=== PATIENT | female | born 1990 | race Caucasian/White ===

== ENCOUNTER 2017-06-04 20:55 | Emergency (ER) ==
[2017-06-04 21:02] VITALS: BP 129/80; TEMP 97.8; BMI 25.5
--- NOTE | 2017-06-04 21:28 | ED.PDOC ---
General ED Provider: Dr. DAMON ROPER Chief Complaint: Abdominal Pain Stated Complaint: BEEN HURTING IN THE LEFT FLANK, has h/o kidney stones in the past. Nausea vomitings Time Seen by Physician: 21:26 Mode of Arrival: Walk-In Information Source: Patient Nursing and Triage Documentation Reviewed and Agree: Yes GI Complaint Exam - Abdominal Pain Complaint/Exam Onset: Gradual Symptoms Are: Still present Timing: Constant Initial Severity: Moderate Current Severity: Moderate Location of Pain: Discrete Radiates To: Reports: Flank Character: Reports: Dull, Aching Aggravating: Reports: Movement Alleviating: Reports: None Associated Signs and Symptoms: Denies: Diaphoresis, Fever, Cough, Chest pain, Dizziness, Back pain, Constipation, Blood in stool, Dysuria, Urinary frequency, Decreased urine output, Decreased appetite, Vaginal bleeding, Vaginal discharge , Nausea, Vomiting, Diarrhea, Sore throat, Decreased activity Related History: Reports: Similar episode AAA Risk Factors: Reports: None Cardiac Risk Factors: Reports: None Ectopic Risk Factors: Reports: None Ovarian Torsion Risk Factors: Reports: None Surgical Obstruction Risk Factors: Reports: None Related Surgical History: Reports: None Patient Rh Status: Unknown Abdominal Findings: Present: None Differential Diagnoses: Renal Colic, UTI Review of Systems - Review Of Systems Constitutional: Reports: Malaise, Weakness Eyes: Reports: No symptoms Ears, Nose, Mouth, Throat: Reports: No symptoms Respiratory: Reports: No symptoms Cardiac: Reports: No symptoms GI: Reports: Abdominal pain, Vomiting : Reports: No symptoms Musculoskeletal: Reports: No symptoms Skin: Reports: No symptoms Neurological: Reports: No symptoms Endocrine: Reports: No symptoms Hematologic/Lymphatic: Reports: No symptoms All Other Systems: Reviewed and Negative Past Medical History - Past Medical History Previously Healthy: Yes Endocrine: Reports: None Cardiovascular: Reports: None Respiratory: Reports: None Hematological: Reports: None, Anemia Gastrointestinal: Reports: None, Other (states many evaluations for abdominal pain as a child without specific diagnosis) Genitourinary: Reports: Kidney stones, Other (10/23/16-CT medullary sponge kidneys) Neuro/Psych: Reports: Anxiety, Depression, Bipolar Disorder Musculoskeletal: Reports: Unknown Cancer: Reports: None Last Menstrual Period: 05/03/17 SPOTTED Other Pertinent Past Medical History: LITHOTRIPSY, URETER STINTS - Surgical History General Surgical History: Reports: Other (LITHOTRIPSY, URETER STINTS) - Family History Family History: Reports: Unknown - Social History Smoking Status: Current every day smoker Hx Substance Use: No Alcohol Screening: Occasionally - Immunizations Tetanus Shot up to Date: Yes Physical Exam - Physical Exam Appearance: Ill-appearing Pain Distress: Moderate Eyes: DYLLAN, EOMI, Conjunctiva clear ENT: Ears normal, Nose normal, Oropharynx normal Respiratory: Airway patent, Breath sounds clear, Breath sounds equal, Respirations nonlabored Cardiovascular: RRR, Pulses normal, No rub, No murmur GI/: Soft, Tender Musculoskeletal: Normal strength, ROM intact, No edema, No calf tenderness Skin: Warm, Dry, Normal color Neurological: Sensation intact, Motor intact, Reflexes intact, Cranial nerves intact, Alert, Oriented Psychiatric: Affect appropriate, Mood appropriate Critical Care Note - Critical Care Note Total Time (mins): 0 Course - Course Orders, Labs, Meds: Lab Review 06/04/17 21:10 Urine Color Yellow Urine Clarity Clear Urine pH 6.5 Ur Specific [place] 1.010 Urine Protein Negative Urine Glucose (UA) Negative Urine Ketones Negative Urine Blood Negative Urine Nitrite Negative Urine Bilirubin Negative Urine Urobilinogen 0.2 Ur Leukocyte Esterase Negative Urine Test Positive Orders Category Date Time Status URINALYSIS C & S IF INDICATED Stat LAB 06/04/17 21:10 Completed URINE Stat LAB 06/04/17 21:[address] ABDOMEN/PELVIS WO CONTRAST Stat RADS 06/04/17 21:24 Ordered Vital Signs: Temp Pulse Resp BP Pulse Ox 06/04/17 20:56 97.8 F 95 H 20 129/80 97 Departure - Departure Time of Disposition: 21:59 Disposition: HOME SELF-CARE Discharge Problem: Abdominal pain Qualifiers: Weeks of gestation: less than 8 weeks Qualifier Code: (Z3A.01) Less than 8 weeks gestation of Instructions: (ED) Condition: Stable Pt referred to PMD for follow-up: Yes Additional Instructions: Increase Hydration soft diet vitamins need f/u with OBGYN Allergies/Adverse Reactions: Allergies clarithromycin [From Biaxin] Adverse Reaction (Verified 06/04/17 21:02) ketorolac tromethamine [From Toradol] Adverse Reaction (Verified 06/04/17 21:02) pseudoephedrine HCl [From Sudafed] Adverse Reaction (Verified 06/04/17 21:02) Sulfa (Sulfonamide Antibiotics) Adverse Reaction (Verified 06/04/17 21:02) tramadol HCl [From Ultram] Adverse Reaction (Verified 06/04/17 21:02) Home Medications: Ambulatory Orders Gabapentin [Neurontin] 800 mg PO TID 10/23/16 Hydrocodone Bit/Acetaminophen [[place] 5-325] 1 - 2 tab PO Q6HR PRN #12 tablet Ondansetron HCl [Zofran Tab] 4 mg PO QID PRN #12 tablet 10/23/16 Oxcarbazepine [Trileptal] 150 mg PO DAILY 10/23/16 Oxcarbazepine [Trileptal] 300 mg PO BEDTIME 10/23/16 Trazodone HCl 100 mg PO BEDTIME 10/23/16 Bupropion HCl [Wellbutrin Sr] 150 mg PO DAILY 06/04/17 Disposition Discussed With: Patient, Family
[2017-06-04 21:34] LABS: BILIRUBIN,URINE Negative (NEGATIVE); KETONES,URINE Negative (NEGATIVE); LEUKOCYTE ESTERASE ,URINE Negative (NEGATIVE); NITRITE,URINE Negative (NEGATIVE); PH,URINE 6.5 (5-9); PROTEIN,URINE Negative (NEGATIVE); URINE, BLOOD Negative (NEGATIVE)
[2017-06-04 21:36] LABS: ADD URINE MICROSCOPIC NO
[2017-06-04 21:37] LABS: URINE PREGNANCY INTERNAL QC INTERNAL QC VALID
[2017-06-04] MEDS ORDERED: PHENERGAN 25 MG/ML VIAL IM STA (21:59)
== END 2017-06-04 22:50 | disposition home or self-care (01) ==
LOC: ED 20:55
DX: R10.9 Unspecified abdominal pain (principal); R11.2 Nausea with vomiting, unspecified; Z3A.01 Less than 8 weeks gestation of pregnancy; F17.210 Nicotine dependence, cigarettes, uncomplicated; Z79.899 Other long term (current) drug therapy
CPT/HCPCS: 81001; 81025; 96372; 99282

== ENCOUNTER 2017-06-07 15:04 | Emergency (ER) ==
[2017-06-07 15:04] VITALS: BMI 25.5
[2017-06-07 15:07] VITALS: BP 115/79; TEMP 98.1
[2017-06-07 15:53] LABS: BASOPHILS % (AUTO) 0.5 % (0.0-3.0); EOSINOPHILS # (AUTO) 0.1 K/ul (0.0-0.7); HEMATOCRIT 42.5 % (37.0-47.0); HEMOGLOBIN 14.4 g/dl (12.0-16.0); IMMATURE GRANULOCYTE % (AUTO) 0.2 % (0.0-5.0); LYMPHOCYTES # (AUTO) 1.6 K/uL (0.60-3.4); LYMPHOCYTES % (AUTO) 26.9 (10.0-50.0); MEAN CORPUSCULAR HEMOGLOBIN 29.8 pg (27.0-31.0); MEAN CORPUSCULAR HGB CONC 33.9 (31.8-35.4); MONOCYTES # (AUTO) 0.5 K/uL (0.4-2.0); MONOCYTES % (AUTO) 7.9 (0-10); NEUTROPHILS # (AUTO) 3.7 K/ul (2.0-6.9); NEUTROPHILS % (AUTO) 63.5; PLATELET COUNT 305 10^3/uL (140-440); RED BLOOD COUNT 4.83 10^6/ul (4.20-5.40); WHITE BLOOD COUNT 5.84 K/ul (4.6-10.2)
--- NOTE | 2017-06-07 15:57 | ED.PDOC ---
General ED Provider: Dr. VICTOR MANUEL HOWARD Chief Complaint: Non-specific Complaint Stated Complaint: Spotting or urinatry track bleeding. 2nd ER visit; urine positive in ER 2 days ago Time Seen by Physician: 15:25 Mode of Arrival: Walk-In Information Source: Patient Exam Limitations: No limitations Nursing and Triage Documentation Reviewed and Agree: Yes Complaint Exam - UTI Female Complaint/Exam Patient Complains of: Reports: Blood in urine Onset/Duration: 3 days ago; back pain Symptoms Are: Resolved (Back pain better, now some spotting - not sure if from urine or if vaginal.) Timing: Intermittent Initial Severity: Mild Current Severity: Mild Location of Pain: Reports: Left, Flank (mild - mostly resolved) Associated Signs and Symptoms: Reports: Vaginal discharge (uncertain if vaginal spotting). Denies: Fever, Chills, Dyspareunia : 1 (+ urine 2 days ago) Review of Systems - Review Of Systems Constitutional: Reports: No symptoms GI: Reports: No symptoms. Denies: Abdomen distended, Abdominal pain, Nausea : Reports: No symptoms Musculoskeletal: Reports: Back pain (mild - essentially resolved) Neurological: Reports: No symptoms Endocrine: Reports: No symptoms All Other Systems: Reviewed and Negative Past Medical History - Past Medical History Previously Healthy: Yes Endocrine: Reports: None Cardiovascular: Reports: None Respiratory: Reports: None Hematological: Reports: None, Anemia Gastrointestinal: Reports: None, Other (states many evaluations for abdominal pain as a child without specific diagnosis) Genitourinary: Reports: Kidney stones, Other (10/23/16-CT medullary sponge kidneys) Neuro/Psych: Reports: Anxiety, Depression, Bipolar Disorder Musculoskeletal: Reports: Unknown Cancer: Reports: None Last Menstrual Period: 03 of May Other Pertinent Past Medical History: LITHOTRIPSY, URETER STINTS - Surgical History General Surgical History: Reports: Other (LITHOTRIPSY, URETER STINTS) - Family History Family History: Reports: Unknown - Social History Smoking Status: Current every day smoker Hx Substance Use: No Alcohol Screening: Occasionally - Immunizations Tetanus Shot up to Date: Yes Physical Exam - Physical Exam Appearance: Well-appearing ENT: Ears normal, Nose normal, Oropharynx normal Neck: Supple Respiratory: Airway patent, Breath sounds clear, Breath sounds equal, Respirations nonlabored Cardiovascular: RRR, Pulses normal GI/: Soft, Nontender, No masses, Bowel sounds normal Skin: Warm, Dry, Normal color Neurological: Sensation intact, Motor intact, Alert, Oriented Psychiatric: Affect appropriate, Mood appropriate Critical Care Note - Critical Care Note Total Time (mins): 15 Course - Course Hematology/Chemistry: 06/07/17 15:44 06/07/17 15:44 Orders, Labs, Meds: Lab Review 06/07/17 15:44 WBC 5.84 RBC 4.83 Hgb 14.4 Hct 42.5 MCV 88.0 MCH 29.8 MCHC 33.9 RDW Coeff of [place]ryst[place] 12.5 Plt Count 305 Immature Gran % (Auto) 0.2 Neut % (Auto) 63.5 Lymph % (Auto) 26.9 [place] % (Auto) 7.9 Eos % (Auto) 1.0 Baso % (Auto) 0.5 Immature Gran # (Auto) 0.0 Neut # 3.7 Lymph # 1.6 [place] # 0.5 Eos # 0.1 Baso # 0.0 Sodium 140 Potassium 4.0 Chloride 106 Carbon Dioxide 23 Anion Gap 15.0 BUN 8 Creatinine 0.79 Estimated GFR (MDRD) 89.00 BUN/Creatinine Ratio 10.12 Glucose 82 Calcium 9.0 Total Bilirubin 0.92 AST 12 L ALT 13 Alkaline Phosphatase 58 Total Protein 6.9 Albumin 3.6 Globulin 3.3 Albumin/Globulin Ratio 1.09 HCG, Quant 5068.98 Orders Category Date Time Status CBC W/ AUTO DIFF Stat LAB 06/07/17 15:44 Completed COMPREHENSIVE METABOLIC PANEL Stat LAB 06/07/17 15:44 Completed HCG,QUANTITATIVE Stat LAB 06/07/17 15:44 Completed Vital Signs: Temp Pulse Resp BP Pulse Ox 06/07/17 15:04 98.1 F 117 H 18 115/79 97 Departure - Departure Time of Disposition: 16:59 Disposition: HOME SELF-CARE Discharge Problem: Spotting complicating Instructions: Threatened Miscarriage (ED) Condition: Stable Pt referred to PMD for follow-up: Yes Additional Instructions: If further concerns, cramping, bleeding may return to an ER; advise of Beta HCG having been done in the ER which will be a reference point for determination of progress of . Otherwise all blood work appears to be within normal limits. Follow up wt Primary Care and with MANAGER [facility]; call to make appointment with [facility]NAGER [facility] for care. Allergies/Adverse Reactions: Allergies clarithromycin [From Biaxin] Adverse Reaction (Verified 06/07/17 15:08) ketorolac tromethamine [From Toradol] Adverse Reaction (Verified 06/07/17 15:08) pseudoephedrine HCl [From Sudafed] Adverse Reaction (Verified 06/07/17 15:08) Sulfa (Sulfonamide Antibiotics) Adverse Reaction (Verified 06/07/17 15:08) tramadol HCl [From Ultram] Adverse Reaction (Verified 06/07/17 15:08) Home Medications: Ambulatory Orders Gabapentin [Neurontin] 800 mg PO TID 10/23/16 Hydrocodone Bit/Acetaminophen [[place] 5-325] 1 - 2 tab PO Q6HR PRN #12 tablet Ondansetron HCl [Zofran Tab] 4 mg PO QID PRN #12 tablet 10/23/16 Oxcarbazepine [Trileptal] 150 mg PO DAILY 10/23/16 Oxcarbazepine [Trileptal] 300 mg PO BEDTIME 10/23/16 Trazodone HCl 100 mg PO BEDTIME 10/23/16 Bupropion HCl [Wellbutrin Sr] 150 mg PO DAILY 06/04/17 Disposition Discussed With: Patient
[2017-06-07 16:13] LABS: ALBUMIN 3.6 g/dL (3.4-5.0); ALBUMIN/GLOBULIN RATIO 1.09; BILIRUBIN,TOTAL 0.92 mg/dL (0.00-1.20); BUN/CREATININE RATIO 10.12; CREATININE 0.79 mg/dL (0.60-1.30); TOTAL PROTEIN 6.9 g/dL (6.4-8.2)
== END 2017-06-07 17:08 | disposition home or self-care (01) ==
LOC: ED 15:04
DX: O20.0 Threatened abortion (principal); Z3A.00 Weeks of gestation of pregnancy not specified; F17.210 Nicotine dependence, cigarettes, uncomplicated
CPT/HCPCS: 36415; 80053; 84702; 85025; 99282